=== PATIENT | male | born 1950 | race Caucasian/White ===

== ENCOUNTER 2023-05-21 08:07 | Outpatient (CLI) | payer OTHER | END 2023-05-21 08:11 | disposition home or self-care (01) | LOC: SONOGRAMA 08:07 | PROVIDERS: ATTEND Pathology Anatomic Pathology & Clinical Pathology | DX: D34 Benign neoplasm of thyroid gland (principal); E04.9 Nontoxic goiter, unspecified ==

== ENCOUNTER 2024-12-12 10:00 | Inpatient (IN) | payer OTHER ==
[~2024-12-12] VITALS: Ht 231.1 cm; Wt 87.5 kg
[2024-12-12 11:05] VITALS: BP 165/86
[2024-12-12] MEDS ORDERED: ISENTRESS HD600 MG PO (11:10)
[2024-12-12] MEDS ORDERED: DESCOVY 200-251 EACH PO (11:11)
[2024-12-12] MEDS ORDERED: KAPSPARGO SPRIN25 MG (11:11)
[2024-12-12] MEDS ORDERED: OXYBUTYNIN CHL2.5 MG (11:13)
[2024-12-12] MEDS ORDERED: NORVASC2.5 M1 (11:13)
[2024-12-15] MEDS ORDERED: HEMOSTATIC MATRIX 1 KIT KIT TOP ONE (07:45)
[2024-12-15] MEDS ORDERED: DIBUCAINE 30 GM TUBE ONE (07:45)
[2024-12-15] MEDS ORDERED: POVIDONE-IODINE 118 ML BOTT TOP ONE (09:00)
[2024-12-15] MEDS ORDERED: METRONIDAZOLE/SODIUM CHLORIDE 500 MG/100 ML PIGGYBACK IV ONE (09:00)
[2024-12-15] MEDS ORDERED: CEFTRIAXONE SODIUM 2,000 MG VIAL IV ONE (09:00)
[2024-12-15] MEDS ORDERED: MORPHINE SULFATE 4 MG/ML VIAL IV ONE (09:30)
[2024-12-15] MEDS ORDERED: MORPHINE SULFATE 4 MG/ML CARTRIDGE IV PRN (09:45)
[2024-12-15] MEDS ORDERED: DEXTROSE 50 % IN WATER 0.5 G/ML DISP.SYRIN IV PRN (09:45)
[2024-12-15] MEDS ORDERED: ONDANSETRON HCL 2 MG/ML VIAL IV PRN (09:45)
[2024-12-15] MEDS ORDERED: OxyCODONE HCL 5 MG TABLET (ROXICODONE) PO PRN (09:45)
[2024-12-15] MEDS ORDERED: 0.9 % SODIUM CHLORIDE 1,000 ML IV SCH (09:45)
[2024-12-15 11:04] LABS: HEMATOCRIT 41.4 % (39.0-48.0); HEMOGLOBIN 14.5 g/dL (13-16.00); MEAN CELL VOLUME 99.2 fL (80.0-100.00); MEAN CORPUSCULAR HEMOGLOBIN 34.8 pg (27.00-32.0); PLATELET COUNT 245 K/uL (150-450); RED BLOOD COUNT 4.17 M/uL (4.00-6.00); RED CELL DISTRIBUTION WIDTH 13.4 % (11.5-14.5)
[2024-12-15 12:01] LABS: ALBUMIN 3.4 gm/dL (3.4-5.0); CALCIUM 9.3 mg/dL (8.5-10.1); CREATININE SERUM 1.04 mg/dL (0.70-1.30); GFR 69.62; MAGNESIUM 1.7 mg/dL (1.8-2.4); POTASSIUM 4.05 mEq/L (3.5-5.1)
[2024-12-15] MEDS ORDERED: HYOSCYAMINE SULFATE 0.125 MG TAB.SUBL SL SCH (13:00)
[2024-12-15] MEDS ORDERED: ACETAMINOPHEN 500 MG GEL..CAP PO SCH (14:00)
[2024-12-15 14:10] VITALS: BP 154/62; O2SAT 96
[2024-12-15 16:00] VITALS: BP 132/861; O2SAT 94
[2024-12-15] MEDS ORDERED: GABAPENTIN 300 MG CAPSULE PO SCH (17:00)
[2024-12-15] MEDS ORDERED: POLYETHYLENE GLYCOL 3350 17 GM BLIST.PACK PO SCH (17:00)
[2024-12-15] MEDS ORDERED: METRONIDAZOLE/SODIUM CHLORIDE 500 MG/100 ML PIGGYBACK IV SCH (17:00)
[2024-12-15] MEDS ORDERED: FAMOTIDINE/PF 20 MG/2 ML VIAL IV PUSH SCH (21:00)
[2024-12-16 02:10] VITALS: BP 155/72; O2SAT 96
[2024-12-16 05:25] LABS: HEMATOCRIT 40.8 % (39.0-48.0); HEMOGLOBIN 14.1 g/dL (13-16.00); MEAN CELL VOLUME 101.4 fL (80.0-100.00); MEAN CORPUSCULAR HEMOGLOBIN 35.1 pg (27.00-32.0); MEAN CORPUSCULAR HGB CONC 34.6 g/dl (32.0-36.0); PLATELET COUNT 228 K/uL (150-450); RED BLOOD COUNT 4.03 M/uL (4.00-6.00); RED CELL DISTRIBUTION WIDTH 13.1 % (11.5-14.5)
[2024-12-16 05:58] LABS: ALBUMIN 2.9 gm/dL (3.4-5.0); CALCIUM 8.9 mg/dL (8.5-10.1); CREATININE SERUM 0.87 mg/dL (0.70-1.30); GFR 85.54; MAGNESIUM 1.9 mg/dL (1.8-2.4); PHOSPHOROUS 2.8 mg/dL (2.5-4.9); POTASSIUM 3.79 mEq/L (3.5-5.1)
[2024-12-16 08:00] VITALS: BP 160/72; O2SAT 100
[2024-12-16] MEDS ORDERED: PERCOCET 5-3251 EACH PO (08:08)
[2024-12-16] MEDS ORDERED: AMLODIPINE BESYLATE 2.5 MG TABLET PO SCH (09:00)
[2024-12-16] MEDS ORDERED: METOPROLOL SUCCINATE 25 MG TAB.SR.24H PO SCH (09:00)
[2024-12-16] MEDS ORDERED: ENOXAPARIN SODIUM 40 MG/0.4 ML SYRINGE SUBCUTANEO SCH (17:00)
[2024-12-17] MEDS ORDERED: ENOXAPARIN SODIUM 40 MG/0.4 ML SYRINGE SUBCUTANEO SCH (09:00)
== END 2024-12-16 14:06 | disposition home or self-care (01) | DRG 375 ==
LOC: O/R 12-15 05:20 → SURH 12-15 10:00
PROVIDERS: ADMIT Surgery; ATTEND Surgery
PROC: 3E0T3BZ Introduction of Anesthetic Agent into Peripheral Nerves and Plexi, Percutaneous Approach (ICD-10-PCS; 2024-12-15)
PROC: 0DBP8ZZ Excision of Rectum, Via Natural or Artificial Opening Endoscopic (ICD-10-PCS; principal; 2024-12-15 10:15)
DX: C20 Malignant neoplasm of rectum (principal); K92.1 Melena
CPT/HCPCS: 0184T; 64430

== ENCOUNTER 2024-12-24 11:41 | Emergency (ER) | payer OTHER ==
[~2024-12-24] VITALS: Ht 170.2 cm; Wt 87.5 kg
[~2024-12-24 11:41] MED LIST: DESCOVY 200-251 EACH PO; ISENTRESS HD600 MG PO; KAPSPARGO SPRIN25 MG; NORVASC2.5 M1; OXYBUTYNIN CHL2.5 MG; PERCOCET 5-3251 EACH PO
[2024-12-24] MEDS ORDERED: DIATRIZOATE MEGLUMINE, SODIUM 30 ML BOTTLE ONE (12:12)
[2024-12-24] MEDS ORDERED: DIATRIZOATE MEGLUMINE, SODIUM 30 ML BOTTLE PO ONE (12:15)
[2024-12-24] MEDS ORDERED: 0.9 % SODIUM CHLORIDE 1,000 ML IV SCH (12:15)
[2024-12-24 12:45] LABS: PH,URINE 5.5 (5.0-8.0); URINE APPEARANCE Clear; URINE BILIRRUBIN Negative (NEGATIVE); URINE BLOOD Negative; URINE COLOR Yellow; URINE GLUCOSE Negative (NEGATIVE); URINE KETONE Negative (NEGATIVE); URINE LEUKOCYTE Negative; URINE NITRATE Negative
[2024-12-24 12:48] LABS: HEMATOCRIT 44.2 % (39.0-48.0); MEAN CELL VOLUME 101.3 fL (80.0-100.00); MEAN CORPUSCULAR HEMOGLOBIN 34.3 pg (27.00-32.0); MEAN CORPUSCULAR HGB CONC 33.9 g/dl (32.0-36.0); PLATELET COUNT 328 K/uL (150-450); RED BLOOD COUNT 4.36 M/uL (4.00-6.00); RED CELL DISTRIBUTION WIDTH 13.6 % (11.5-14.5)
[2024-12-24 12:49] LABS: URINE RBC 3.3 uL (0.0-20.8); URINE WBC 12.7 uL (0.0-23.2)
[2024-12-24 12:58] LABS: URINE CAST 0.29 uL (0.0-1.40); URINE EPITHELIAL CELLS 0.6 uL (0.0-38.8); URINE PROTEIN 100 (NEGATIVE)
[2024-12-24 13:17] LABS: ALBUMIN 3.5 gm/dL (3.4-5.0); BILIRUBIN TOTAL 0.4 mg/dL (0.3-1.2); CALCIUM 9.5 mg/dL (8.5-10.1); CREATININE SERUM 1.02 mg/dL (0.70-1.30); GFR 71.2; GLOBULINA 5.1 G/DL (2.4-3.5); INR 1.08; PARTIAL THROMBOPLASTIN TIME 25.6 SECONDS (22.0-34.0); POTASSIUM 3.79 mEq/L (3.5-5.1); TOTAL PROTEIN 8.6 gm/dL (6.4-8.2)
[2024-12-24 13:27] LABS: PROTHROMBIN TIME 11.7 SECONDS (9.0-11.5)
[2024-12-24] MEDS ORDERED: MINERAL OIL 30 ML BLIST.PACK TOP ONE (15:15)
[2024-12-24] MEDS ORDERED: LACTULOSE 20 G/30 ML BLIST.PACK PO ONE (15:15)
[2024-12-24] MEDS ORDERED: MAGNESIUM HYDROXIDE 400 MG/5 ML ML PO ONE (15:15)
[2024-12-24] MEDS ORDERED: MIRALAX510 GM PO (15:17)
[2024-12-24] MEDS ORDERED: LACTULOSE10 GM/15 M PO (15:17)
[2024-12-24] MEDS ORDERED: LACTULOSE 20 G/30 ML BLIST.PACK ONE (15:40)
[2024-12-24] MEDS ORDERED: MINERAL OIL 30 ML BLIST.PACK ONE (15:40)
[2024-12-24] MEDS ORDERED: MAGNESIUM HYDROXIDE 30 ML BLIST.PACK PO ONE (15:41)
== END 2024-12-24 15:48 | disposition home or self-care (01) ==
LOC: ER 11:43
PROVIDERS: General Practice
DX: K59.00 Constipation, unspecified (principal); Z20.822 Contact with and (suspected) exposure to COVID-19; I10 Essential (primary) hypertension; Z88.6 Allergy status to analgesic agent; Z91.018 Allergy to other foods
CPT/HCPCS: 36415; 74177; Q9965

== ENCOUNTER 2025-01-12 07:08 | Day surgery (SDC) | payer OTHER ==
[2025-01-07 11:50] VITALS: BP 150/83
[~2025-01-12] VITALS: Ht 170.2 cm; Wt 83.0 kg
[~2025-01-12 07:08] MED LIST changes: +LACTULOSE10 GM/15 M PO; +MIRALAX510 GM PO; +RESTORIL30 MG PO
[2025-01-12] MEDS ORDERED: BUPIVACAINE HCL/PF 0.25% 30ML VIAL InF SCH (11:30)
[2025-01-12] MEDS ORDERED: CEFAZOLIN SODIUM 1,000 MG VIAL IV SCH (11:30)
[2025-01-12] MEDS ORDERED: HEPARIN SODIUM,PORCINE 5,000 UNITS/ML VIAL IJ SCH (11:30)
[2025-01-12] MEDS ORDERED: LIDOCAINE HCL 1%/EPINEPHRINE 20ML VIAL IJ SCH (11:30)
[2025-01-12] MEDS ORDERED: PERCOCET 5-3251 EACH PO (11:34)
== END 2025-01-12 13:55 | disposition home or self-care (01) ==
LOC: CIR.AMB 07:08
PROVIDERS: ATTEND Surgery
DX: C20 Malignant neoplasm of rectum (principal); I10 Essential (primary) hypertension; Z88.6 Allergy status to analgesic agent; Z91.013 Allergy to seafood
CPT/HCPCS: 36561; C1751